=== PATIENT | female | born 1965 | race Caucasian/White ===

== ENCOUNTER 2019-05-09 15:58 | Inpatient (IN) | payer BC, OTHER ==
--- NOTE | 2019-05-09 16:20 | ER Document Report ---
ED Medical Screen (RME) - General Chief Complaint: Abdominal Pain Stated Complaint: ABDOMINAL PAIN, FEET SWELLING Time Seen by Provider: 05/09/19 16:04 Primary Care Provider: LINDA COMER FNP-C [Primary Care Provider] - Follow up as needed Mode of Arrival: Wheelchair Information source: Patient Notes: 54-year-old female presented to ED for complaint of severe abdominal pain x2 weeks. She states she just got into the hospital at [facility] for pneumonia. She states they told her she had liver disease from drinking 4-5 drinks a day. She states she also smokes 4 5 cigarettes a day. She states they sent her home on lactulose xifaxan 500 mg bid and potassium. She states that the legs have been swollen and painful the same length of time as her abdomen is been swollen and painful. Patient is alert oriented respirations regular and unlabored speaking in full sentences. She states she is having pain in her abdomen and she is cold. We have provided her with a blanket we will get her started on labs urine and have her seen by another provider. A warm blanket was provided for comfort. Abdomen is very distended. I have greeted and performed a rapid initial assessment of this patient. A comprehensive ED assessment and evaluation of the patient, analysis of test results and completion of medical decision making process will be conducted by an additional ED providers. TRAVEL OUTSIDE OF THE [place] IN LAST 30 DAYS: No - Related Data Allergies/Adverse Reactions: No Known Allergies Allergy (Verified 05/09/19 16:02) Physical Exam - Vital signs Vitals: Temp Pulse Resp BP Pulse Ox 97.7 F 107 H 20 129/91 H 100 05/09/19 16:03 05/09/19 16:03 05/09/19 16:03 05/09/19 16:03 05/09/19 16:03 Course - Vital Signs Vital signs: Temp Pulse Resp BP Pulse Ox 97.7 F 107 H 20 129/91 H 100 05/09/19 16:03 05/09/19 16:03 05/09/19 16:03 05/09/19 16:03 05/09/19 16:03 Doctor's Discharge - Discharge Referrals: LINDA COMER FNP-C [Primary Care Provider] - Follow up as needed
--- NOTE | 2019-05-09 16:39 | ER Document Report ---
ED GI/ - General Chief Complaint: Abdominal Pain Stated Complaint: ABDOMINAL PAIN, FEET SWELLING Time Seen by Provider: 05/09/19 16:04 Primary Care Provider: LINDA COMER FNP-C [Primary Care Provider] - Follow up as needed Mode of Arrival: Wheelchair Information source: Patient Notes: HPI: 54-year-old female with past medical history as recorded with a recent discharge from [facility] secondary to "pneumonia". She states she was discharged around 3 weeks ago. She states that the discharge she started to have some bilateral lower extremity swelling with some increased abdominal swelling. Patient states she has never been told that she has cirrhosis but has been told that she has a history of "liver abnormalities". However, she was prescribed lactulose upon discharge from [facility]. Patient presents today secondary to the leg swelling. On my interview she denies any abdominal pain. She does state increased abdominal swelling. She denies any fevers, vomiting, or diarrhea. She states she just "does not feel good". She is not able to specify exactly what that means. She specifically denies any headache, neck pain, chest pain, cough, or shortness of breath. ROS: See HPI All other review of systems reviewed and otherwise negative Reviewed vital signs and nursing note as charted by RN. PHYSICAL EXAM: CONSTITUTIONAL: Alert and oriented and responds appropriately to questions. Wel l-appearing; well-nourished HEAD: Normocephalic; atraumatic EYES: PERRL; Conjunctivae clear, sclerae icteric ENT: Normal nose; no rhinorrhea; moist mucous membranes; pharynx without lesions noted NECK: Supple without meningismus; non-tender; no cervical lymphadenopathy, no masses CARD: Regular rate and rhythm; no murmurs; symmetric distal pulses RESP: Normal chest excursion without splinting or tachypnea; breath sounds clear and equal bilaterally; no wheezes, no rhonchi, no rales ABD/GI: Normal bowel sounds; distended with a palpable fluid wave consistent with extensive ascites BACK: The back appears normal and is non-tender to palpation EXT: Normal ROM in all joints; non-tender to palpation; 2-3+ bilateral lower extremity edema SKIN: Spider angiomata to the chest NEURO: CN 2-12 intact; 5/5 bilateral upper and lower extremity strength with sensation intact to light touch; no obvious asterixis PSYCH: The patient's mood and manner are appropriate. Grooming and personal hygiene are appropriate. TRAVEL OUTSIDE OF THE [place] IN LAST 30 DAYS: No - Related Data Allergies/Adverse Reactions: No Known Allergies Allergy (Verified 05/09/19 16:02) Past Medical History - General Information source: Patient - Social History Smoking Status: Current Every Day Smoker Family History: Reviewed & Not Pertinent Patient has suicidal ideation: No Patient has homicidal ideation: No Renal/ Medical History: Denies: Hx Peritoneal Dialysis Physical Exam - Vital signs Vitals: Temp Pulse Resp BP Pulse Ox 97.7 F 107 H 20 129/91 H 100 05/09/19 16:03 05/09/19 16:03 05/09/19 16:03 05/09/19 16:03 05/09/19 16:03 Course - Re-evaluation Re-evalutation: 05/09/19 16:39 Given the above history and physical we will obtain basic labs, ultrasound of the abdomen, liver panel, coagulation profile, EKG, BNP, x-ray of the chest, and reassess. I do believe that the patient most likely has liver failure with ascites. I do believe spontaneous bacterial peritonitis to be unlikely given that the patient has no fever, abdominal pain on exam, and has had no vomiting. 05/09/19 17:36 Labs as recorded. I replaced the patient's potassium. Blood alcohol level as recorded. 05/09/19 17:38 X-ray of the chest shows normal heart size with no increased lung infiltrates or lung markings. No pleural effusions present. 05/09/19 17:47 EKG shows a heart of 103, sinus tachycardia, normal axis, no ST elevation or depression 05/09/19 17:53 Ultrasound as recorded. White count is recorded. Patient states she is on no diuretic medications. She has never been treated for her liver failure for her ascites. Electrolytes slightly irregular and I have replaced the potassium. Given the increased leg swelling, with the ascites as recorded, I do believe that the patient may need to be admitted for observation/admission as we start the patient on a diuretic medication including possibly spironolactone with electrolyte reassessment. - Vital Signs Vital signs: Temp Pulse Resp BP Pulse Ox 97.7 F 107 H 20 129/91 H 100 05/09/19 16:03 05/09/19 16:03 05/09/19 16:03 05/09/19 16:03 05/09/19 16:03 - Laboratory Result Diagrams: 05/09/19 16:30 05/09/19 16:30 Laboratory results interpreted by me: 05/09/19 05/09/19 05/09/19 16:30 16:30 16:30 RBC 2.91 L Hgb 10.1 L Hct 30.8 L MCV 106 H MCH 34.5 H RDW 15.6 H Plt Count 88 L PT 16.4 H APTT 40.7 H Sodium 136.6 L Potassium 3.2 L Carbon Dioxide 20 L BUN 6 L Creatinine 0.47 L Glucose 55 L Calcium 8.1 L Total Bilirubin 1.4 H Direct Bilirubin 0.7 H AST 183 H Alkaline Phosphatase 277 H Albumin 3.2 L Discharge - Discharge Clinical Impression: Cirrhosis Qualifiers: Hepatic cirrhosis type: unspecified hepatic cirrhosis Ascites presence: with ascites Qualified Code(s): K74.60 - Unspecified cirrhosis of liver; R18.8 - Other ascites Condition: Fair Disposition: ADMITTED OBSERVATION Admitting Provider: Ana (Hospitalist) Unit Admitted: Telemetry Referrals: LINDA COMER FNP-C [Primary Care Provider] - Follow up as needed
[2019-05-09 17:05] LABS: ABSOLUTE LYMPHOCYTES (AUTO) 0.6 10^3/uL (0.5-4.7); ABSOLUTE MONOCYTES (AUTO) 0.3 10^3/uL (0.1-1.4); ABSOLUTE NEUT (AUTO) 3.1 10^3/uL (1.7-8.2); EOSINOPHILS % (AUTO) 0.3 % (0-6); HEMATOCRIT 30.8 % (36.0-47.0); HEMOGLOBIN 10.1 g/dL (12.0-15.5); LYMPHOCYTES % (AUTO) 14.2 % (13-45); MEAN CORPUSCULAR HEMOGLOBIN 34.5 pg (27.0-33.4); MEAN CORPUSCULAR HGB CONC 32.6 g/dL (32.0-36.0); MEAN CORPUSCULAR VOLUME 106 fl (80-97); RED BLOOD COUNT 2.91 10^6/uL (3.72-5.28); RED CELL DISTRIBUTION WIDTH 15.6 % (11.5-14.0); SEGMENTED NEUTROPHILS % (AUTO) 77.5 % (42-78); TOTAL CELLS COUNTED % (AUTO) 100 %
[2019-05-09 17:13] LABS: INTERNATIONAL RATION (INR) 1.31; PROTHROMBIN TIME 16.4 SEC (11.4-15.4)
[2019-05-09 17:14] LABS: PARTIAL THROMBOPLASTIN TIME 40.7 SEC (23.5-35.8)
[2019-05-09 17:22] LABS: ALBUMIN 3.2 g/dL (3.5-5.0); ALCOHOL 190 mg/dL (NONE DETECTED); ALKALINE PHOSPHATASE 277 U/L (38-126); ANION GAP 16 (5-19); ASPARTATE AMINO TRANSFERASE 183 U/L (14-36); BILIRUBIN,DIRECT 0.7 mg/dL (0.0-0.4); BILIRUBIN,TOTAL 1.4 mg/dL (0.2-1.3); BLOOD UREA NITROGEN 6 mg/dL (7-20); CALCIUM 8.1 mg/dL (8.4-10.2); CARBON DIOXIDE 20 mmol/L (22-30); CHLORIDE 101 mmol/L (98-107); CREATINE KINASE 50 U/L (30-135); POTASSIUM 3.2 mmol/L (3.6-5.0); TOTAL PROTEIN 6.3 g/dL (6.3-8.2)
[2019-05-09 17:24] LABS: GLUCOSE 55 mg/dL (75-110)
[2019-05-09 17:26] LABS: PLATELET COUNT 88 10^3/uL (150-450)
[2019-05-09 17:32] LABS: CREATINE KINASE MB 0.83 ng/mL (<4.55)
[2019-05-09 17:33] LABS: TROPONIN I < 0.012 ng/mL
[2019-05-09] MEDS: POTASSIUM CHLORIDE 10 MEQ CAPSULE.ER PO ONE ×2 (17:41→17:50)
--- NOTE | 2019-05-09 17:41 | RADIOLOGY REPORT (SQ) ---
EXAM DESCRIPTION: U/S ABDOMEN COMPLETE W/O DOP COMPLETED DATE/TIME: 05/09/2019 5:11 pm REASON FOR STUDY: 3; possible ascites and liver failure COMPARISON: None. TECHNIQUE: Grayscale images acquired of the abdomen and recorded on PACS. Additional selected color Doppler and spectral images recorded. Note: Study does not meet criteria for complete doppler/duplex scan LIMITATIONS: Overlying bowel gas. FINDINGS: PANCREAS: Obscured by overlying bowel gas. LIVER: Measures 14.3 cm. Heterogeneous echotexture with a nodular contour. LIVER VASCULATURE: Normal directional flow of the main portal vein. GALLBLADDER: No stones. Normal wall thickness. No pericholecystic fluid. ULTRASOUND-DETECTED GUPTA'S SIGN: Negative. INTRAHEPATIC DUCTS AND COMMON DUCT: CBD and intrahepatic ducts normal caliber. INFERIOR VENA CAVA: Obscured. AORTA: No aneurysm at the visualized proximal segment. The mid and distal abdominal aorta was obscur ed by overlying bowel gas. RIGHT KIDNEY: Measures 10.5 cm in length. No hydronephrosis. LEFT KIDNEY: Measures 12.7 cm in length. No hydronephrosis. SPLEEN: Measures 12 cm. PERITONEAL AND PLEURAL SPACES: Moderate amount of ascites. IMPRESSION: 1. Heterogeneous liver with a nodular contour, suggestive of cirrhosis. 2. Moderate ascites. TECHNICAL DOCUMENTATION: JOB ID: [id number] 2010 [employer]- All Rights Reserved Reading location - IP/workstation name: [email or web address]
[2019-05-09] MEDS ORDERED: POTASSI CL 20 MEQ/50 ML RIDER 20 MEQ/50 ML RTUPB IV ONE (17:45)
[2019-05-09] MEDS ORDERED: NORMAL SALINE 1000 ML 1,000 ML IV PRN (17:51)
[2019-05-09] MEDS ORDERED: ACETAMINOPHEN 325 MG TABLET PO PRN (18:01)
[2019-05-09] MEDS ORDERED: ONDANSETRON HCL INJ/PF 4 MG/2 ML SDV IV PRN (18:01)
--- NOTE | 2019-05-09 18:01 | RADIOLOGY REPORT (SQ) ---
EXAM DESCRIPTION: CHEST 2 VIEWS COMPLETED DATE/TIME: 05/09/2019 5:12 pm REASON FOR STUDY: 3; liver failure with leg swelling COMPARISON: None. EXAM PARAMETERS: NUMBER OF VIEWS: two views TECHNIQUE: Digital Frontal and Lateral radiographic views of the chest acquired. RADIATION DOSE: NA LIMITATIONS: none FINDINGS: LUNGS AND PLEURA: Mild atelectasis at the left lung base. No pleural effusion or pneumoth orax. MEDIASTINUM AND HILAR STRUCTURES: No masses or contour abnormalities. HEART AND VASCULAR STRUCTURES: Heart normal size. No evidence for failure. BONES: No acute findings. HARDWARE: None in the chest. IMPRESSION: Mild atelectasis at the left lung base. TECHNICAL DOCUMENTATION: JOB ID: [id number] 2010 [employer]- All Rights Reserved Reading location - IP/workstation name: [email or web address]
[2019-05-09 18:03] LABS: APPEARANCE,URINE SLIGHTLY-CLOUDY; BILIRUBIN,URINE NEGATIVE (NEGATIVE); COLOR,URINE YELLOW; GLUCOSE, URINE NEGATIVE (NEGATIVE); KETONES,URINE 20 mg/dL (NEGATIVE); LEUKOCYTE ESTERASE,URINE LARGE (NEGATIVE); NITRITE,URINE NEGATIVE (NEGATIVE); PROTEIN,URINE NEGATIVE (NEGATIVE); URINE SPECIFIC GRAVITY 1.006; UROBILINOGEN,URINE NEGATIVE mg/dL (<2.0)
[2019-05-09] MEDS ORDERED: KETOROLAC TROMETHAMINE INJ/PF 30 MG/1 ML SDV IV ONE (18:03)
[2019-05-09 18:13] LABS: URINE AMPHETAMINES SCREEN NEGATIVE; URINE BARBITURATES SCREEN NEGATIVE; URINE BENZODIAZEPINES SCREEN NEGATIVE; URINE COCAINE SCREEN NEGATIVE; URINE MARIJUANA (THC) SCREEN NEGATIVE; URINE METHADONE SCREEN NEGATIVE; URINE PHENCYCLIDINE SCREEN NEGATIVE
--- NOTE | 2019-05-09 18:48 | PDOC H&P ---
History of Present Illness Admission Date/PCP: 05/09/19 18:02 ALEXANDER CAPELLAN-Antonia Patient complains of: Abdominal swelling and lower leg swelling for the last couple of weeks. History of Present Illness: DONTRELL SOUZA is a 54 year old female with history of cirrhosis of the liver and alcohol abuse since she was a kid chronic smoker came to the emergency room with complaints of abdominal swelling and bilateral leg swelling for the last couple of weeks. Patient was recently in [facility] [place] for pneumonia and discharged 3 weeks ago. Continues to drink alcohol. She had a heavy alcohol use last night before came to the emergency room today. Alcohol level in the emergency room is 190. He wants to be full code. He denies any nausea vomiting diarrhea denies any headaches dizzy spells. Denies any falls. She is noncompliant with her medications lactulose. Past Medical History Pulmonary Medical History: Reports: Pneumonia GI Medical History: Reports: Cirrhosis Past Surgical History Past Surgical History: Reports: Other - Tracheostomy Social History Smoking Status: Current Every Day Smoker Frequency of Alcohol Use: Heavy Hx Recreational Drug Use: No Drugs: None - Advance Directive Resuscitation Status: Full Code Family History Family History: Reviewed & Not Pertinent Parental Family History Reviewed: Yes - Not significant Children Family History Reviewed: Yes Sibling(s) Family History Reviewed.: Yes Medication/Allergy Allergies/Adverse Reactions: No Known Allergies Allergy (Verified 05/09/19 16:02) Review of Systems Constitutional: PRESENT: fatigue, weakness. ABSENT: fever(s), headache(s) Eyes: ABSENT: visual disturbances Ears: ABSENT: hearing changes Nose, Mouth, and Throat: ABSENT: sore throat Cardiovascular: ABSENT: palpitations Respiratory: ABSENT: dyspnea, hemoptysis Gastrointestinal: PRESENT: bloating Genitourinary: ABSENT: dysuria Neurological: ABSENT: abnormal gait, abnormal speech, confusion, dizziness, focal weakness, syncope Psychiatric: ABSENT: anxiety, depression, homidical ideation, suicidal ideation Physical Exam Vital Signs: Temp Pulse Resp BP Pulse Ox 97.7 F 107 H 20 129/91 H 100 05/09/19 16:03 05/09/19 16:03 05/09/19 16:03 05/09/19 16:03 05/09/19 16:03 Intake & Output 05/08/19 05/09/19 05/10/19 06:59 06:59 06:59 Weight 66 kg General appearance: PRESENT: mild distress, thin Head exam: PRESENT: atraumatic Eye exam: PRESENT: PERRLA Ear exam: PRESENT: normal external ear exam Mouth exam: PRESENT: neck supple Teeth exam: PRESENT: poor dentation Neck exam: ABSENT: carotid bruit, JVD, lymphadenopathy, thyromegaly Respiratory exam: PRESENT: decreased breath sounds Cardiovascular exam: PRESENT: RRR. ABSENT: diastolic murmur, rubs, systolic murmur GI/Abdominal exam: PRESENT: ascites, distended, guarding, normal bowel sounds, soft. ABSENT: mass, organolmegaly, rebound, tenderness Rectal exam: PRESENT: deferred Extremities exam: PRESENT: full ROM, +2 edema. ABSENT: calf tenderness, clubbing, pedal edema Neurological exam: PRESENT: alert, awake, oriented to person, oriented to place, oriented to time, oriented to situation, CN II-XII grossly intact. ABSENT: motor sensory deficit Psychiatric exam: PRESENT: agitated Results Laboratory Results: 05/09/19 16:30 05/09/19 16:30 05/09/19 05/09/19 05/09/19 16:30 16:30 17:25 WBC 4.0 RBC 2.91 L Hgb 10.1 L Hct 30.8 L MCV 106 H MCH 34.5 H MCHC 32.6 RDW 15.6 H Plt Count 88 L Seg Neutrophils % 77.5 Sodium 136.6 L Potassium 3.2 L Chloride 101 Carbon Dioxide 20 L Anion Gap 16 BUN 6 L Creatinine 0.47 L Est GFR ( Amer) > 60 Glucose 55 L Calcium 8.1 L Total Bilirubin 1.4 H AST 183 H Alkaline Phosphatase 277 H Ammonia < 8.7 L Total Protein 6.3 Albumin 3.2 L Lipase 71.5 Urine Color Urine Appearance Urine pH Ur Specific [place] Urine Protein Urine Glucose (UA) Urine Ketones Urine Blood Urine Nitrite Ur Leukocyte Esterase Urine WBC (Auto) Urine RBC (Auto) 05/09/19 17:45 WBC RBC Hgb Hct MCV MCH MCHC RDW Plt Count Seg Neutrophils % Sodium Potassium Chloride Carbon Dioxide Anion Gap BUN Creatinine Est GFR ( Amer) Glucose Calcium Total Bilirubin AST Alkaline Phosphatase Ammonia Total Protein Albumin Lipase Urine Color YELLOW Urine Appearance SLIGHTLY-CLOUDY Urine pH 7.0 Ur Specific [place] 1.006 Urine Protein NEGATIVE Urine Glucose (UA) NEGATIVE Urine Ketones 20 H Urine Blood SMALL H Urine Nitrite NEGATIVE Ur Leukocyte Esterase LARGE H Urine WBC (Auto) 86 Urine RBC (Auto) 1 05/09/19 05/09/19 16:30 16:30 Creatine Kinase 50 CK-MB (CK-2) 0.83 Troponin I < 0.012 Impressions: Abdomen Ultrasound 05/09/19 16:35 IMPRESSION: 1. Heterogeneous liver with a nodular contour, suggestive of cirrhosis. 2. Moderate ascites. Chest X-Ray 05/09/19 16:36 IMPRESSION: Mild atelectasis at the left lung base. Assessment and Plan - Diagnosis (1) Cirrhosis Qualifiers: Hepatic cirrhosis type: unspecified hepatic cirrhosis Ascites presence: with ascites Qualified Code(s): K74.60 - Unspecified cirrhosis of liver; R18.8 - Other ascites Is this a current diagnosis for this admission?: Yes Plan: 05/09/2019-patient came in with complaints of abdominal swelling and bilateral pedal edema ultrasound of the abdomen indicates no enlarged liver with ascites moderate amount on examination bilateral pedal edema present. Ammonia level is less than 8.7 and alcohol level is 190. Plan to put her in telemetry to start on low-fat and diet with fluid restriction of 1200 cc/day and also start her on Lasix 40 mg p.o. twice daily and spironolactone 100 mg p.o. twice daily. To start her on a lactulose 30 g every 8 hours. Latest profile was requested and requested to check for alpha-fetoprotein. (2) Alcohol abuse Is this a current diagnosis for this admission?: Yes Plan: 05/09/2019-patient has history of alcohol abuse she is drinking for the last 30 years on daily basis. Counseling was provided to quit drinking. To start her on Ativan 1 mg IV every 4 PRN for agitation and to watch for alcohol withdrawal symptoms. Other than a banana bag daily. (3) Hypokalemia Is this a current diagnosis for this admission?: Yes Plan: 05/09/2019-serum potassium is 3.2 which is going to be supplemented on daily basis. (4) Tobacco abuse Is this a current diagnosis for this admission?: No Plan: 05/09/2019-patient has history of smoking for more than 30 years. Current day smoker. Smokes close to 1 pack/day. Smoking counseling was provided for more than 20 minutes to offer nicotine patches. - Time Time Spent with patient: 25-34 minutes Smoking Cessation Education: over 10 minutes Medications reviewed and adjusted accordingly: Yes Anticipated discharge: Home
--- NOTE | 2019-05-09 19:09 | EKG REPORT ---
SEVERITY:- OTHERWISE NORMAL ECG - SINUS TACHYCARDIA : Confirmed by: Archana Irwin MD 09-May-2019 19:09:09
[2019-05-09 19:30] LABS: CREATINE KINASE MB 0.83 ng/mL (<4.55)
[2019-05-09 19:31] LABS: TROPONIN I < 0.012 ng/mL
[2019-05-09] MEDS: NORMAL SALINE 1000 ML 1,000 ML with POTASSIUM CHLORIDE 20 MEQ, MAGNESIUM SULFATE 8 MEQ,... IV SCH ×5 (20:40)
[2019-05-09] MEDS: MAGNESIUM SULFATE/D5W 1 GM/100 ML RTUPB IV SCH ×2 (20:52→22:05)
[2019-05-09] MEDS: LACTULOSE SYRUP 20 GM/30 ML UDCUP PO SCH (22:05)
[2019-05-09] MEDS: LORAZEPAM INJ 2 MG/1 ML VIAL IV PRN (22:06)
[2019-05-10 01:41] LABS: CREATINE KINASE MB 0.68 ng/mL (<4.55)
[2019-05-10] MEDS: LACTULOSE SYRUP 20 GM/30 ML UDCUP PO SCH ×6 (01:45→22:48)
[2019-05-10 01:48] LABS: TROPONIN I < 0.012 ng/mL
[2019-05-10] MEDS: LORAZEPAM INJ 2 MG/1 ML VIAL IV PRN ×3 (01:49→22:15)
[2019-05-10] MEDS: PANTOPRAZOLE SODIUM 40 MG TABLET.DR PO SCH ×2 (05:35→17:49)
[2019-05-10 07:34] LABS: ALBUMIN 2.8 g/dL (3.5-5.0); ALKALINE PHOSPHATASE 287 U/L (38-126); ANION GAP 7 (5-19); ASPARTATE AMINO TRANSFERASE 169 U/L (14-36); BILIRUBIN,DIRECT 0.4 mg/dL (0.0-0.4); BILIRUBIN,TOTAL 1.1 mg/dL (0.2-1.3); BLOOD UREA NITROGEN 8 mg/dL (7-20); CALCIUM 8.1 mg/dL (8.4-10.2); CARBON DIOXIDE 27 mmol/L (22-30); CHLORIDE 101 mmol/L (98-107); CHOLESTEROL 138.81 mg/dL (0-200); CREATINE KINASE 43 U/L (30-135); GLUCOSE 101 mg/dL (75-110); POTASSIUM 3.3 mmol/L (3.6-5.0); TOTAL PROTEIN 5.8 g/dL (6.3-8.2); TRIGLYCERIDES 89 mg/dL (<150)
[2019-05-10 07:40] LABS: ABSOLUTE EOSINOPHILS # (AUTO) 0.1 10^3/uL (0.0-0.6); ABSOLUTE LYMPHOCYTES (AUTO) 1.3 10^3/uL (0.5-4.7); ABSOLUTE MONOCYTES (AUTO) 0.4 10^3/uL (0.1-1.4); ABSOLUTE NEUT (AUTO) 2.7 10^3/uL (1.7-8.2); BASOPHILS % (AUTO) 0.3 % (0-2); EOSINOPHILS % (AUTO) 1.2 % (0-6); HEMATOCRIT 26.7 % (36.0-47.0); HEMOGLOBIN 8.9 g/dL (12.0-15.5); LYMPHOCYTES % (AUTO) 28.5 % (13-45); MEAN CORPUSCULAR HEMOGLOBIN 34.4 pg (27.0-33.4); MEAN CORPUSCULAR HGB CONC 33.3 g/dL (32.0-36.0); MEAN CORPUSCULAR VOLUME 103 fl (80-97); MONOCYTES % (AUTO) 9.2 % (3-13); RED BLOOD COUNT 2.59 10^6/uL (3.72-5.28); RED CELL DISTRIBUTION WIDTH 15.5 % (11.5-14.0); SEGMENTED NEUTROPHILS % (AUTO) 60.8 % (42-78); TOTAL CELLS COUNTED % (AUTO) 100 %; WHITE BLOOD COUNT 4.5 10^3/uL (4.0-10.5)
[2019-05-10 07:44] LABS: CREATINE KINASE MB 0.61 ng/mL (<4.55); NT PRO BNP 328 pg/mL (5-900)
[2019-05-10 07:46] LABS: DIRECT LDL 70 mg/dL (<100)
[2019-05-10 07:48] LABS: TROPONIN I < 0.012 ng/mL
[2019-05-10 08:02] LABS: PLATELET COUNT 78 10^3/uL (150-450)
--- NOTE | 2019-05-10 09:33 | EKG REPORT ---
SEVERITY:- ABNORMAL ECG - SINUS TACHYCARDIA PROBABLE ANTEROSEPTAL INFARCT, OLD : Confirmed by: Archana Irwin MD 10-May-2019 09:31:43
[2019-05-10] MEDS ORDERED: FUROSEMIDE 40 MG TABLET PO SCH (10:00)
[2019-05-10] MEDS ORDERED: POTASSIUM CHLORIDE 20 MEQ PACKET PO SCH (10:00)
[2019-05-10] MEDS: ENOXAPARIN SODIUM INJ 40 MG/0.4 ML DISP.SYRIN SUBCUT SCH (10:50)
--- NOTE | 2019-05-10 10:50 | PDOC PROGRESS REPORT ---
Subjective Progress Note for:: 05/10/19 Subjective:: 54 year old female with history of cirrhosis of the liver and alcohol abuse since she was a kid chronic smoker came to the emergency room with complaints of abdominal swelling and bilateral leg swelling for the last couple of weeks. Patient was recently in [facility] [place] for pneumonia and discharged 3 weeks ago. Continues to drink alcohol. She had a heavy alcohol use last night before came to the emergency room today. Alcohol level in the emergency room is 190. He wants to be full code. He denies any nausea vomiting diarrhea denies any headaches dizzy spells. Denies any falls. She is noncompliant with her medications lactulose. 05/10/[id number]-irtu-old female with heavy alcohol use history and cirrhosis of the liver admitted for abdominal distention and bilateral lower extremity swelling. Started on Lasix 40 mg p.o. daily and spironolactone 100 mg p.o. daily. Still edematous. To start her on fluid restriction 1200 cc/h and to increase the Lasix to 40 mg p.o. twice daily and continue spironolactone 100 mg p.o. daily. We are going to place a consult for Dr. Christopher on-call for tomorrow. hepatitis profile and alpha-fetoprotein tumor markers are pending. Reason For Visit: CIRRHOSIS Physical Exam Vital Signs: Temp Pulse Resp BP Pulse Ox 98.4 F 110 H 22 H 130/76 H 93 05/10/19 08:10 05/10/19 08:10 05/10/19 08:10 05/10/19 08:10 05/10/19 09:54 Intake & Output 05/09/19 05/10/19 05/11/19 06:59 06:59 06:59 Intake Total 1770 Balance 1770 Weight 69.8 kg General appearance: PRESENT: no acute distress Head exam: PRESENT: atraumatic Eye exam: PRESENT: PERRLA Mouth exam: PRESENT: moist, tongue midline Teeth exam: PRESENT: poor dentation Neck exam: ABSENT: carotid bruit, JVD, lymphadenopathy, thyromegaly Respiratory exam: PRESENT: decreased breath sounds Cardiovascular exam: PRESENT: RRR. ABSENT: diastolic murmur, rubs, systolic murmur GI/Abdominal exam: PRESENT: ascites, distended Rectal exam: PRESENT: deferred Extremities exam: PRESENT: +2 edema Neurological exam: PRESENT: alert, awake, oriented to person, oriented to place, oriented to time, oriented to situation, CN II-XII grossly intact. ABSENT: motor sensory deficit Psychiatric exam: PRESENT: appropriate affect, normal mood. ABSENT: homicidal ideation, suicidal ideation Results Laboratory Results: 05/10/19 07:06 05/10/19 07:06 05/09/19 05/09/19 05/09/19 16:30 16:30 17:25 WBC 4.0 RBC 2.91 L Hgb 10.1 L Hct 30.8 L MCV 106 H MCH 34.5 H MCHC 32.6 RDW 15.6 H Plt Count 88 L Seg Neutrophils % 77.5 Sodium 136.6 L Potassium 3.2 L Chloride 101 Carbon Dioxide 20 L Anion Gap 16 BUN 6 L Creatinine 0.47 L Est GFR ( Amer) > 60 Glucose 55 L Calcium 8.1 L Magnesium Total Bilirubin 1.4 H AST 183 H Alkaline Phosphatase 277 H Ammonia < 8.7 L Total Protein 6.3 Albumin 3.2 L Triglycerides Cholesterol LDL Cholesterol Direct VLDL Cholesterol HDL Cholesterol Lipase 71.5 TSH Urine Color Urine Appearance Urine pH Ur Specific Manito Urine Protein Urine Glucose (UA) Urine Ketones Urine Blood Urine Nitrite Ur Leukocyte Esterase Urine WBC (Auto) Urine RBC (Auto) 05/09/19 05/10/19 05/10/19 17:45 07:06 07:06 WBC 4.5 RBC 2.59 L Hgb 8.9 L Hct 26.7 L MCV 103 H MCH 34.4 H MCHC 33.3 RDW 15.5 H Plt Count 78 L Seg Neutrophils % 60.8 Sodium 135.2 L Potassium 3.3 L Chloride 101 Carbon Dioxide 27 Anion Gap 7 BUN 8 Creatinine 0.49 L Est GFR ( Amer) > 60 Glucose 101 Calcium 8.1 L Magnesium 1.9 Total Bilirubin 1.1 AST 169 H Alkaline Phosphatase 287 H Ammonia Total Protein 5.8 L Albumin 2.8 L Triglycerides 89 Cholesterol 138.81 LDL Cholesterol Direct 70 VLDL Cholesterol 18.0 HDL Cholesterol 57 Lipase 100.0 TSH Urine Color YELLOW Urine Appearance SLIGHTLY-CLOUDY Urine pH 7.0 Ur Specific Manito 1.006 Urine Protein NEGATIVE Urine Glucose (UA) NEGATIVE Urine Ketones 20 H Urine Blood SMALL H Urine Nitrite NEGATIVE Ur Leukocyte Esterase LARGE H Urine WBC (Auto) 86 Urine RBC (Auto) 1 05/10/19 05/10/19 07:06 07:06 WBC RBC Hgb Hct MCV MCH MCHC RDW Plt Count Seg Neutrophils % Sodium Potassium Chloride Carbon Dioxide Anion Gap BUN Creatinine Est GFR ( Amer) Glucose Calcium Magnesium Total Bilirubin AST Alkaline Phosphatase Ammonia 14.2 Total Protein Albumin Triglycerides Cholesterol LDL Cholesterol Direct VLDL Cholesterol HDL Cholesterol Lipase TSH 2.89 Urine Color Urine Appearance Urine pH Ur Specific Manito Urine Protein Urine Glucose (UA) Urine Ketones Urine Blood Urine Nitrite Ur Leukocyte Esterase Urine WBC (Auto) Urine RBC (Auto) 05/09/19 05/09/19 05/09/19 16:30 16:30 18:50 Creatine Kinase 50 49 CK-MB (CK-2) 0.83 Troponin I < 0.012 NT-Pro-B Natriuret Pep 05/09/19 05/10/19 05/10/19 18:50 00:49 00:49 Creatine Kinase 44 CK-MB (CK-2) 0.83 0.68 Troponin I < 0.012 < 0.012 NT-Pro-B Natriuret Pep 05/10/19 05/10/19 07:06 07:06 Creatine Kinase 43 CK-MB (CK-2) 0.61 Troponin I < 0.012 NT-Pro-B Natriuret Pep 328 Impressions: Abdomen Ultrasound 05/09/19 16:35 IMPRESSION: 1. Heterogeneous liver with a nodular contour, suggestive of cirrhosis. 2. Moderate ascites. Chest X-Ray 05/09/19 16:36 IMPRESSION: Mild atelectasis at the left lung base. Assessment and Plan - Diagnosis (1) Cirrhosis Qualifiers: Hepatic cirrhosis type: unspecified hepatic cirrhosis Ascites presence: with ascites Qualified Code(s): K74.60 - Unspecified cirrhosis of liver; R18.8 - Other ascites Is this a current diagnosis for this admission?: Yes Plan: 05/09/2019-patient came in with complaints of abdominal swelling and bilateral pedal edema ultrasound of the abdomen indicates no enlarged liver with ascites moderate amount on examination bilateral pedal edema present. Ammonia level is less than 8.7 and alcohol level is 190. Plan to put her in telemetry to start on low-fat and diet with fluid restriction of 1200 cc/day and also start her on Lasix 40 mg p.o. twice daily and spironolactone 100 mg p.o. twice daily. To start her on a lactulose 30 g every 8 hours. Latest profile was requested and requested to check for alpha-fetoprotein. 05/10/2019-patient has a cirrhosis of the liver CAT scan shows nodularity. On Lasix 40 mg p.o. twice daily and spironolactone [address] daily to [address] GI consult for tomorrow. Placed on fluid restriction 1200 cc/h. On examination moderate ascites present in the abdomen and 2+ pedal edema present. (2) Alcohol abuse Is this a current diagnosis for this admission?: Yes Plan: 05/09/2019-patient has history of alcohol abuse she is drinking for the last 30 years on daily basis. Counseling was provided to quit drinking. To start her on Ativan 1 mg IV every 4 PRN for agitation and to watch for alcohol withdrawal symptoms. Other than a banana bag daily. 05/10/2019-patient is presently on IV Ativan every 4 PRN for possible alcohol withdrawal symptoms and to watch for DTs. (3) Hypokalemia Is this a current diagnosis for this admission?: Yes Plan: 05/09/2019-serum potassium is 3.2 which is going to be supplemented on daily basis. 05/10/2019-serum potassium today is 3.3 to give p.o. potassium supplementation. (4) Tobacco abuse Is this a current diagnosis for this admission?: No - Time Time Spent with patient: 25-34 minutes Smoking Cessation Education: over 10 minutes Medications reviewed and adjusted accordingly: Yes Anticipated discharge: Home
[2019-05-10] MEDS: SPIRONOLACTONE 25 MG TABLET PO SCH (10:58)
[2019-05-10] MEDS: FUROSEMIDE 40 MG TABLET PO SCH ×2 (10:59→17:48)
[2019-05-10] MEDS: RIFAXIMIN 550 MG TABLET PO SCH ×2 (11:00→17:49)
[2019-05-10] MEDS: NORMAL SALINE 1000 ML 1,000 ML with POTASSIUM CHLORIDE 20 MEQ, MAGNESIUM SULFATE 8 MEQ,... IV SCH ×5 (17:48)
[2019-05-11] MEDS: LORAZEPAM INJ 2 MG/1 ML VIAL IV PRN ×3 (02:40→22:24)
[2019-05-11] MEDS: LACTULOSE SYRUP 20 GM/30 ML UDCUP PO SCH ×6 (05:53→21:17)
[2019-05-11] MEDS: PANTOPRAZOLE SODIUM 40 MG TABLET.DR PO SCH ×2 (07:42→16:59)
[2019-05-11] MEDS: RIFAXIMIN 550 MG TABLET PO SCH ×2 (09:14→17:00)
[2019-05-11] MEDS: ENOXAPARIN SODIUM INJ 40 MG/0.4 ML DISP.SYRIN SUBCUT SCH (09:14)
[2019-05-11] MEDS: FUROSEMIDE 40 MG TABLET PO SCH ×2 (09:14→16:59)
[2019-05-11] MEDS: SPIRONOLACTONE 25 MG TABLET PO SCH (09:14)
--- NOTE | 2019-05-11 09:16 | RADIOLOGY REPORT (SQ) ---
EXAM DESCRIPTION: CT ABD/PELVIS NO ORAL OR IV COMPLETED DATE/TIME: 05/11/2019 9:03 am REASON FOR STUDY: ascites COMPARISON: 05/09/2019 TECHNIQUE: CT scan of the abdomen and pelvis performed without intravenous or oral contrast. Images reviewed with lung, soft tissue, and bone windows. Reconstructed coronal and sagittal MPR images revi ewed. All images stored on PACS. All CT scanners at this facility use dose modulation, iterative reconstruction, and/or weight based d osing when appropriate to reduce radiation dose to as low as reasonably achievable (ALARA). [facility]: Dose Right [facility]: CareDose [facility]: Dose Right [facility]: Teradose 4D [facility]: Smart GrabInbox RADIATION DOSE: CT Rad equipment meets quality standard of care and radiation dose reduction techniq ues were employed. CTDIvol: 5.4 mGy. DLP: 313 mGy-cm.mGy. LIMITATIONS: None. FINDINGS: LOWER CHEST: There are bilateral pleural effusions and basilar atelectasis. NON-CONTRASTED LIVER, SPLEEN, ADRENALS: Diffuse fatty infiltration of the liver. PANCREAS: No masses. No peripancreatic inflammatory changes. GALLBLADDER: No identified stones by CT criteria. No inflammatory changes to suggest cholecystitis. RIGHT KIDNEY AND URETER: No suspicious masses. Assessment limited by lack of IV contrast. No signif icant calcifications. No hydronephrosis or hydroureter. LEFT KIDNEY AND URETER: No suspicious masses. Assessment limited by lack of IV contrast. No signifi cant calcifications. No hydronephrosis or hydroureter. AORTA AND RETROPERITONEUM: No aneurysm. No retroperitoneal masses or adenopathy. BOWEL AND PERITONEAL CAVITY: Large amount of ascites. No inflammatory changes. APPENDIX: Normal. PELVIS, BLADDER, AND ABDOMINAL WALL:Free fluid in the pelvis. No masses are adenopathy. BONES: No significant findings. OTHER: No other significant finding. IMPRESSION: Moderate to large volume ascites. Heterogeneous attenuation throughout the liver consistent with fatty infiltration. COMMENT: Quality ID # [id number]: Final reports with documentation of one or more dose reduction techniques (e.g., Automated exposure control, adjustment of the mA and/or kV according to patient size, use of iterative reconstruction technique) TECHNICAL DOCUMENTATION: JOB ID: [id number] [employer]- All Rights Reserved Reading location - IP/workstation name: [email or web address]
[2019-05-11 09:35] LABS: ABSOLUTE EOSINOPHILS # (AUTO) 0.1 10^3/uL (0.0-0.6); ABSOLUTE LYMPHOCYTES (AUTO) 0.9 10^3/uL (0.5-4.7); ABSOLUTE MONOCYTES (AUTO) 0.3 10^3/uL (0.1-1.4); ABSOLUTE NEUT (AUTO) 1.8 10^3/uL (1.7-8.2); BASOPHILS % (AUTO) 1.1 % (0-2); EOSINOPHILS % (AUTO) 3.1 % (0-6); HEMATOCRIT 27.7 % (36.0-47.0); HEMOGLOBIN 9.2 g/dL (12.0-15.5); LYMPHOCYTES % (AUTO) 29.7 % (13-45); MEAN CORPUSCULAR HEMOGLOBIN 34.1 pg (27.0-33.4); MEAN CORPUSCULAR HGB CONC 33.2 g/dL (32.0-36.0); MEAN CORPUSCULAR VOLUME 103 fl (80-97); MONOCYTES % (AUTO) 8.8 % (3-13); RED CELL DISTRIBUTION WIDTH 14.9 % (11.5-14.0); SEGMENTED NEUTROPHILS % (AUTO) 57.3 % (42-78); TOTAL CELLS COUNTED % (AUTO) 100 %; WHITE BLOOD COUNT 3.1 10^3/uL (4.0-10.5)
[2019-05-11 09:58] LABS: ALBUMIN 2.9 g/dL (3.5-5.0); ALKALINE PHOSPHATASE 256 U/L (38-126); ANION GAP 7 (5-19); ASPARTATE AMINO TRANSFERASE 121 U/L (14-36); BILIRUBIN,DIRECT 0.5 mg/dL (0.0-0.4); BILIRUBIN,TOTAL 1.6 mg/dL (0.2-1.3); BLOOD UREA NITROGEN 4 mg/dL (7-20); CALCIUM 8.1 mg/dL (8.4-10.2); CARBON DIOXIDE 31 mmol/L (22-30); CHLORIDE 97 mmol/L (98-107); GLUCOSE 119 mg/dL (75-110); TOTAL PROTEIN 6.2 g/dL (6.3-8.2)
[2019-05-11 09:59] LABS: PLATELET COUNT 70 10^3/uL (150-450)
[2019-05-11] MEDS ORDERED: POTASSIUM CHLORIDE 20 MEQ PACKET PO SCH (10:00)
[2019-05-11] MEDS ORDERED: ONDANSETRON HCL INJ/PF 4 MG/2 ML SDV IV PRN (10:00)
[2019-05-11 10:07] LABS: POTASSIUM 2.8 mmol/L (3.6-5.0)
--- NOTE | 2019-05-11 13:42 | PDOC PROGRESS REPORT ---
Subjective Progress Note for:: 05/11/19 Subjective:: 54 year old female with history of cirrhosis of the liver and alcohol abuse since she was a kid chronic smoker came to the emergency room with complaints of abdominal swelling and bilateral leg swelling for the last couple of weeks. Patient was recently in [facility] for pneumonia and discharged 3 weeks ago. Continues to drink alcohol. She had a heavy alcohol use last night before came to the emergency room today. Alcohol level in the emergency room is 190. He wants to be full code. He denies any nausea vomiting diarrhea denies any headaches dizzy spells. Denies any falls. She is noncompliant with her medications lactulose. 05/10/[id number]-yooy-old female with heavy alcohol use history and cirrhosis of the liver admitted for abdominal distention and bilateral lower extremity swelling. Started on Lasix 40 mg p.o. daily and spironolactone 100 mg p.o. daily. Still edematous. To start her on fluid restriction 1200 cc/h and to increase the Lasix to 40 mg p.o. twice daily and continue spironolactone 100 mg p.o. daily. We are going to place a consult for Dr. Christopher on-call for tomorrow. hepatitis profile and alpha-fetoprotein tumor markers are pending. 05/11/[id number]-saej-old female with history of heavy alcohol use and smoker admitted with liver cirrhosis. CT scan of the abdominal and pelvis shows large amount of ascites. Scheduled for abdominal paracentesis tomorrow. Patient is comfortable in the bed communicating well. Reason For Visit: CIRRHOSIS Physical Exam Vital Signs: Temp Pulse Resp BP Pulse Ox 98.3 F 100 16 106/79 96 05/11/19 10:50 05/11/19 10:50 05/11/19 10:50 05/11/19 10:50 05/11/19 10:50 Intake & Output 05/10/19 05/11/19 05/12/19 06:59 06:59 06:59 Intake Total 2338 772 9583 Output Total 200 Balance 4680 367 8050 Weight 69.8 kg 69.9 kg General appearance: PRESENT: no acute distress, cooperative, disheveled, thin Head exam: PRESENT: atraumatic Eye exam: PRESENT: PERRLA Teeth exam: PRESENT: poor dentation Neck exam: ABSENT: carotid bruit, JVD, lymphadenopathy, thyromegaly Respiratory exam: PRESENT: decreased breath sounds Cardiovascular exam: PRESENT: RRR. ABSENT: diastolic murmur, rubs, systolic murmur GI/Abdominal exam: PRESENT: ascites, normal bowel sounds, soft. ABSENT: distended, guarding, mass, organolmegaly, rebound, tenderness Rectal exam: PRESENT: deferred Extremities exam: PRESENT: full ROM. ABSENT: calf tenderness, clubbing, pedal edema Neurological exam: PRESENT: alert, awake, oriented to person, oriented to place, oriented to time, oriented to situation, CN II-XII grossly intact. ABSENT: motor sensory deficit Psychiatric exam: PRESENT: appropriate affect, normal mood. ABSENT: homicidal ideation, suicidal ideation Results Laboratory Results: 05/11/19 09:13 05/11/19 09:13 05/11/19 05/11/19 09:13 09:13 WBC 3.1 L RBC 2.70 L Hgb 9.2 L Hct 27.7 L MCV 103 H MCH 34.1 H MCHC 33.2 RDW 14.9 H Plt Count 70 L Seg Neutrophils % 57.3 Sodium 134.7 L Potassium 2.8 L* Chloride 97 L Carbon Dioxide 31 H Anion Gap 7 BUN 4 L Creatinine 0.41 L Est GFR ( Amer) > 60 Glucose 119 H Calcium 8.1 L Magnesium 1.6 Total Bilirubin 1.6 H AST 121 H Alkaline Phosphatase 256 H Total Protein 6.2 L Albumin 2.9 L 05/09/19 05/09/19 05/09/19 16:30 16:30 18:50 Creatine Kinase 50 49 CK-MB (CK-2) 0.83 Troponin I < 0.012 NT-Pro-B Natriuret Pep 05/09/19 05/10/19 05/10/19 18:50 00:49 00:49 Creatine Kinase 44 CK-MB (CK-2) 0.83 0.68 Troponin I < 0.012 < 0.012 NT-Pro-B Natriuret Pep 05/10/19 05/10/19 07:06 07:06 Creatine Kinase 43 CK-MB (CK-2) 0.61 Troponin I < 0.012 NT-Pro-B Natriuret Pep 328 Impressions: Abdomen Ultrasound 05/09/19 16:35 IMPRESSION: 1. Heterogeneous liver with a nodular contour, suggestive of cirrhosis. 2. Moderate ascites. Chest X-Ray 05/09/19 16:36 IMPRESSION: Mild atelectasis at the left lung base. Abdomen/Pelvis CT 05/11/19 00:00 IMPRESSION: Moderate to large volume ascites. Heterogeneous attenuation throughout the liver consistent with fatty infiltration. Assessment and Plan - Diagnosis (1) Cirrhosis Qualifiers: Hepatic cirrhosis type: unspecified hepatic cirrhosis Ascites presence: with ascites Qualified Code(s): K74.60 - Unspecified cirrhosis of liver; R18.8 - Other ascites Is this a current diagnosis for this admission?: Yes Plan: 05/09/2019-patient came in with complaints of abdominal swelling and bilateral pedal edema ultrasound of the abdomen indicates no enlarged liver with ascites moderate amount on examination bilateral pedal edema present. Ammonia level is less than 8.7 and alcohol level is 190. Plan to put her in telemetry to start on low-fat and diet with fluid restriction of 1200 cc/day and also start her on Lasix 40 mg p.o. twice daily and spironolactone 100 mg p.o. twice daily. To start her on a lactulose 30 g every 8 hours. Latest profile was requested and requested to check for alpha-fetoprotein. 05/10/2019-patient has a cirrhosis of the liver CAT scan shows nodularity. On Lasix 40 mg p.o. twice daily and spironolactone [address] GI consult for tomorrow. Placed on fluid restriction 1200 cc/h. On examination moderate ascites present in the abdomen and 2+ pedal edema present. 05/11/2019-patient has a cirrhosis of the liver with nodularity. GI consult was requested. Hepatitis profile is pending. Presently on Lasix 40 mg p.o. twice daily and spironolactone 100 mg p.o. daily. Potassium 3.3. (2) Alcohol abuse Is this a current diagnosis for this admission?: Yes Plan: 05/09/2019-patient has history of alcohol abuse she is drinking for the last 30 y ears on daily basis. Counseling was provided to quit drinking. To start her on Ativan 1 mg IV every 4 PRN for agitation and to watch for alcohol withdrawal symptoms. Other than a banana bag daily. 05/10/2019-patient is presently on IV Ativan every 4 PRN for possible alcohol withdrawal symptoms and to watch for DTs. 05/11/2019-patient has a history of heavy alcohol use. Presently on IV Ativan 4 mg every 4 PRN for prevention of her DTs. (3) Hypokalemia Is this a current diagnosis for this admission?: Yes Plan: 05/09/2019-serum potassium is 3.2 which is going to be supplemented on daily basis. 05/10/2019-serum potassium today is 3.3 to give p.o. potassium supplementation. 05/11/2019-serum potassium today is 2.8 which is going to be supplemented. (4) Tobacco abuse Is this a current diagnosis for this admission?: No - Time Time Spent with patient: 25-34 minutes Medications reviewed and adjusted accordingly: Yes Anticipated discharge: Home
[2019-05-11] MEDS: POTASSIUM CHLORIDE 20 MEQ PACKET PO SCH ×2 (14:30→17:00)
[2019-05-11 14:36] LABS: HEPATITS B SURFACE ANTIGEN Negative (Negative)
[2019-05-11 16:46] LABS: HEPATITIS C VIRUS ANTIBODY <0.1 s/co ratio (0.0-0.9)
[2019-05-11] MEDS: NORMAL SALINE 1000 ML 1,000 ML with POTASSIUM CHLORIDE 20 MEQ, MAGNESIUM SULFATE 8 MEQ,... IV SCH ×5 (16:59)
[2019-05-12] MEDS: LACTULOSE SYRUP 20 GM/30 ML UDCUP PO SCH ×4 (03:42→11:57)
[2019-05-12] MEDS: LORAZEPAM INJ 2 MG/1 ML VIAL IV PRN ×4 (05:24→23:26)
[2019-05-12] MEDS: PANTOPRAZOLE SODIUM 40 MG TABLET.DR PO SCH ×2 (05:24→18:16)
[2019-05-12 06:28] LABS: INTERNATIONAL RATION (INR) 1.34; PROTHROMBIN TIME 16.7 SEC (11.4-15.4)
[2019-05-12 06:29] LABS: PARTIAL THROMBOPLASTIN TIME 37.3 SEC (23.5-35.8)
[2019-05-12 10:13] LABS: BLOOD UREA NITROGEN 3 mg/dL (7-20); CALCIUM 7.9 mg/dL (8.4-10.2); CHLORIDE 99 mmol/L (98-107); GLUCOSE 97 mg/dL (75-110); POTASSIUM 3.4 mmol/L (3.6-5.0)
[2019-05-12 10:18] LABS: ANION GAP 5 (5-19); CARBON DIOXIDE 30 mmol/L (22-30)
[2019-05-12] MEDS: FUROSEMIDE 40 MG TABLET PO SCH ×2 (10:32→18:16)
[2019-05-12] MEDS: POTASSIUM CHLORIDE 20 MEQ PACKET PO SCH ×3 (10:32→18:17)
[2019-05-12] MEDS: SPIRONOLACTONE 25 MG TABLET PO SCH (10:32)
[2019-05-12] MEDS: RIFAXIMIN 550 MG TABLET PO SCH ×2 (10:57→18:44)
--- NOTE | 2019-05-12 10:57 | RADIOLOGY REPORT (SQ) ---
EXAM DESCRIPTION: U/S ABD PARACENTESIS COMPLETED DATE/TIME: 05/12/2019 10:33 am REASON FOR STUDY: ascites COMPARISON: 05/09/2019 LIMITATIONS: None. PROCEDURE: Procedure, risks, benefit, and alternative explained to patient who then gave written con sent. The right upper abdominal wall marked using ultrasound guidance. A time-out was called for co rrect marking verification. Abdomen prepped and draped using sterile technique. Local anesthesia ach ieved using 10 ml of 1% lidocaine injection. A 6fr Bacj-P-Uyhyhlet set was introduced into the perit delong cavity. Fluid was drained. The catheter was removed and entry site was covered with sterile b andage. No immediate complications noted. Images acquired during the procedure were stored on PACS. FINDINGS: ENTRY SITE: Right upper quadrant FLUID VOLUME: 4 L FLUID ANALYSIS: Straw-colored OTHER: Therapeutic only. IMPRESSION: SUCCESSFUL ULTRASOUND GUIDED PARACENTESIS. COMMENT: Patient medication list reviewed:Yes- Quality ID# [id number]:Eligible professional attests to docu menting in the medical record they obtained, updated, or reviewed the patient's current medications. TECHNICAL DOCUMENTATION: JOB ID: [id number] [employer]- All Rights Reserved Reading location - IP/workstation name: [email or web address]
--- NOTE | 2019-05-12 14:18 | PDOC CONSULTATION ---
Consultation Consult Date: 05/12/19 Provider Consulted: SANDER KHAN Consult reason:: Cirrhosis with ascites History of Present Illness Admission Date/PCP: 05/09/19 18:02 MARTINEZ CAPELLAN History of Present Illness: DONTRELL SOUZA is a 54 year old female Asked to see this patient has chronic liver disease due to ETOH admitted with ascites recent paracentesis and had 4L removed, feels better patient has lab work pending has been on maximal diuretics patient had CT scan done, no IV contrast, so no PVT appreciated patient has alpha feto protein and hepatitis panel pending patient has mildly elevated LFT and normal renal function Past Medical History Pulmonary Medical History: Reports: Pneumonia GI Medical History: Reports: Cirrhosis Psychiatric Medical History: Denies: Depression Past Surgical History Past Surgical History: Reports: Other - Tracheostomy Social History Smoking Status: Current Every Day Smoker Cigarettes Packs Per Day: 0.5 Frequency of Alcohol Use: Heavy Hx Recreational Drug Use: No Drugs: None Hx Prescription Drug Abuse: No - Advance Directive Resuscitation Status: Full Code Family History Family History: Reviewed & Not Pertinent Parental Family History Reviewed: Yes Children Family History Reviewed: Unknown Sibling(s) Family History Reviewed.: Unknown Medication/Allergy Home Medications: Rifaximin [Xifaxan 550 mg Tablet] 550 mg PO BID 05/10/19 Lactulose 500 mg PO DAILY 05/12/19 Allergies/Adverse Reactions: No Known Allergies Allergy (Verified 05/09/19 16:02) Review of Systems Constitutional: ABSENT: fever(s), headache(s), night sweats, weakness Ears: ABSENT: hearing changes Nose, Mouth, and Throat: ABSENT: mouth pain, sore throat Cardiovascular: ABSENT: edema, orthropnea, palpitations Respiratory: ABSENT: dyspnea, hemoptysis Gastrointestinal: ABSENT: hematemesis, hematochezia, melena Genitourinary: ABSENT: dysuria, hematuria Musculoskeletal: ABSENT: deformity, joint swelling Neurological: ABSENT: syncope, tingling, tremor(s), vertigo Endocrine: ABSENT: polydipsia, polyphagia, polyuria Hematologic/Lymphatic: ABSENT: lymphadenopathy Physical Exam Vital Signs: Temp Pulse Resp BP Pulse Ox 98.8 F 98 12 100/63 93 05/12/19 11:30 05/12/19 11:30 05/12/19 11:30 05/12/19 11:30 05/12/19 11:30 Intake & Output 05/11/19 05/12/19 05/13/19 06:59 06:59 06:59 Intake Total 600 1263 1263 Output Total 200 Balance 400 1263 1263 Weight 69.9 kg General appearance: PRESENT: no acute distress, well-developed, well-nourished Head exam: PRESENT: atraumatic, normocephalic Eye exam: PRESENT: EOMI, PERRLA. ABSENT: nystagmus, periorbital swelling, scleral icterus Mouth exam: PRESENT: moist, neck supple Throat exam: ABSENT: tonsillar exudate, tonsillogmegaly Neck exam: ABSENT: meningismus, tenderness, thyromegaly Respiratory exam: PRESENT: symmetrical, unlabored. ABSENT: tachypnea, wheezes Cardiovascular exam: PRESENT: RRR, +S1, +S2 GI/Abdominal exam: PRESENT: soft. ABSENT: rebound, rigid, tenderness Extremities exam: ABSENT: joint swelling Musculoskeletal exam: PRESENT: full ROM Neurological exam: PRESENT: oriented to situation, CN II-XII grossly intact Focused psych exam: ABSENT: restlessness Skin exam: PRESENT: normal color. ABSENT: mottled, pallor, urticaria, vesicles Results Laboratory Results: 05/11/19 09:13 05/12/19 05:45 05/12/19 05:45 Sodium 134.3 L Potassium 3.4 L Chloride 99 Carbon Dioxide 30 Anion Gap 5 BUN 3 L Creatinine 0.46 L Est GFR ( Amer) > 60 Glucose 97 Calcium 7.9 L 05/09/19 05/09/19 05/09/19 16:30 16:30 18:50 Creatine Kinase 50 49 CK-MB (CK-2) 0.83 Troponin I < 0.012 NT-Pro-B Natriuret Pep 05/09/19 05/10/19 05/10/19 18:50 00:49 00:49 Creatine Kinase 44 CK-MB (CK-2) 0.83 0.68 Troponin I < 0.012 < 0.012 NT-Pro-B Natriuret Pep 05/10/19 05/10/19 07:06 07:06 Creatine Kinase 43 CK-MB (CK-2) 0.61 Troponin I < 0.012 NT-Pro-B Natriuret Pep 328 Impressions: Abdomen Ultrasound 05/09/19 16:35 IMPRESSION: 1. Heterogeneous liver with a nodular contour, suggestive of cirrhosis. 2. Moderate ascites. Chest X-Ray 05/09/19 16:36 IMPRESSION: Mild atelectasis at the left lung base. Abdomen/Pelvis CT 05/11/19 00:00 IMPRESSION: Moderate to large volume ascites. Heterogeneous attenuation throughout the liver consistent with fatty infiltration. Paracentesis Ultrasound 05/12/19 00:00 IMPRESSION: SUCCESSFUL ULTRASOUND GUIDED PARACENTESIS. Assessment & Plan - Diagnosis (1) Alcohol abuse Is this a current diagnosis for this admission?: Yes Plan: needs to stop continue use of alcohol (2) Cirrhosis Qualifiers: Hepatic cirrhosis type: unspecified hepatic cirrhosis Ascites presence: with ascites Qualified Code(s): K74.60 - Unspecified cirrhosis of liver; R18.8 - Other ascites Is this a current diagnosis for this admission?: Yes Plan: maximize diuretics as current dose indicated low sodium< 2 grams per day if has reaccumulation , ? candidate for possible TIPS but will need a tertiary center has had paracentesis and feels better hepatitis profile is negative may be worthwhile to check MAYCO, AMA, iron studies to rule out for hemachromatosis, and alpha 1 antitrypsin levels wait on alpha fetoprotein stop alcohol use currently no evidence of alcoholic hepatitis xifaxin may be useful as well start antibiotics to reduce potential SBP with ascites, prophylactic antibiotics with a fluroquinolone may be useful as well currently compensated and PT is only slightly abnormal will follow as needed - Time Time Spent: 50 to 70 Minutes
--- NOTE | 2019-05-12 17:41 | PDOC PROGRESS REPORT ---
Subjective Progress Note for:: 05/12/19 Subjective:: This is a 54 yr old female with chronic alcohol abuse who presented with increasing abdominal distention and bilateral pedal swelling. She was admitted for significant ascites and hypokalemia likely related to her decompensated chronic liver disease. Patient just came back from radiology and had paracentesis. She denies acute complaint. She says her abdominal discomfort is much better after the paracentesis. No shortness of breath. Per RN, she had multiple episodes of diarrhea last night. Decrease lactulose from q6h to daily. Reason For Visit: CIRRHOSIS Physical Exam Vital Signs: Temp Pulse Resp BP Pulse Ox 98.8 F 98 12 100/63 93 05/12/19 11:30 05/12/19 11:30 05/12/19 11:30 05/12/19 11:30 05/12/19 11:30 Intake & Output 05/11/19 05/12/19 05/13/19 06:59 06:59 06:59 Intake Total 600 1263 1263 Output Total 200 Balance 400 1263 1263 Weight 154 lb 1.65 oz General appearance: PRESENT: no acute distress, well-developed, well-nourished Head exam: PRESENT: atraumatic, normocephalic Eye exam: PRESENT: conjunctiva pink, EOMI, PERRLA. ABSENT: scleral icterus Ear exam: PRESENT: normal external ear exam Mouth exam: PRESENT: moist, tongue midline Neck exam: ABSENT: carotid bruit, JVD, lymphadenopathy, thyromegaly Respiratory exam: PRESENT: clear to auscultation maurilio. ABSENT: rales, rhonchi, wheezes Cardiovascular exam: PRESENT: RRR. ABSENT: diastolic murmur, rubs, systolic murmur GI/Abdominal exam: PRESENT: ascites, distended - mildly distended, normal bowel sounds, soft. ABSENT: guarding, mass, organolmegaly, rebound, tenderness Rectal exam: PRESENT: deferred Neurological exam: PRESENT: alert, awake, oriented to person, oriented to place, oriented to time, oriented to situation, CN II-XII grossly intact. ABSENT: motor sensory deficit Results Laboratory Results: 05/11/19 09:13 05/12/19 05:45 05/12/19 05:45 Sodium 134.3 L Potassium 3.4 L Chloride 99 Carbon Dioxide 30 Anion Gap 5 BUN 3 L Creatinine 0.46 L Est GFR ( Amer) > 60 Glucose 97 Calcium 7.9 L 05/09/19 05/09/19 05/09/19 16:30 16:30 18:50 Creatine Kinase 50 49 CK-MB (CK-2) 0.83 Troponin I < 0.012 NT-Pro-B Natriuret Pep 05/09/19 05/10/19 05/10/19 18:50 00:49 00:49 Creatine Kinase 44 CK-MB (CK-2) 0.83 0.68 Troponin I < 0.012 < 0.012 NT-Pro-B Natriuret Pep 05/10/19 05/10/19 07:06 07:06 Creatine Kinase 43 CK-MB (CK-2) 0.61 Troponin I < 0.012 NT-Pro-B Natriuret Pep 328 Impressions: Abdomen Ultrasound 05/09/19 16:35 IMPRESSION: 1. Heterogeneous liver with a nodular contour, suggestive of cirrhosis. 2. Moderate ascites. Chest X-Ray 05/09/19 16:36 IMPRESSION: Mild atelectasis at the left lung base. Abdomen/Pelvis CT 05/11/19 00:00 IMPRESSION: Moderate to large volume ascites. Heterogeneous attenuation throughout the liver consistent with fatty infiltration. Paracentesis Ultrasound 05/12/19 00:00 IMPRESSION: SUCCESSFUL ULTRASOUND GUIDED PARACENTESIS. Assessment and Plan - Diagnosis (1) Ascites due to alcoholic cirrhosis Is this a current diagnosis for this admission?: Yes Plan: Patient just got back from radiology and had paracentesis. (2) Cirrhosis Qualifiers: Hepatic cirrhosis type: unspecified hepatic cirrhosis Ascites presence: with ascites Qualified Code(s): K74.60 - Unspecified cirrhosis of liver; R18.8 - Other ascites Is this a current diagnosis for this admission?: Yes Plan: Continue lasix and aldactone. (3) Alcohol abuse Is this a current diagnosis for this admission?: Yes Plan: Counseled on cessation. (4) Hypokalemia Is this a current diagnosis for this admission?: Yes Plan: Continue PO replacement. - Time Time Spent with patient: 15-24 minutes
[2019-05-12] MEDS: NORMAL SALINE 1000 ML 1,000 ML with POTASSIUM CHLORIDE 20 MEQ, MAGNESIUM SULFATE 8 MEQ,... IV SCH ×5 (18:16)
[2019-05-13] MEDS: PANTOPRAZOLE SODIUM 40 MG TABLET.DR PO SCH (05:13)
[2019-05-13] MEDS: LACTULOSE SYRUP 20 GM/30 ML UDCUP PO SCH (10:23)
[2019-05-13] MEDS: FUROSEMIDE 40 MG TABLET PO SCH (10:24)
[2019-05-13] MEDS: SPIRONOLACTONE 25 MG TABLET PO SCH (10:24)
[2019-05-13] MEDS: POTASSIUM CHLORIDE 20 MEQ PACKET PO SCH (11:02)
[2019-05-13] MEDS: RIFAXIMIN 550 MG TABLET PO SCH (11:02)
[2019-05-13] MEDS ORDERED: SPIRONOLACTONE 25 MG TABLET PO ONE (11:45)
[2019-05-13] MEDS ORDERED: FUROSEMIDE 20 MG TABLET PO ONE (12:00)
[2019-05-13 12:27] LABS: ANION GAP 5 (5-19); BLOOD UREA NITROGEN 5 mg/dL (7-20); CALCIUM 8.2 mg/dL (8.4-10.2); CARBON DIOXIDE 29 mmol/L (22-30); CHLORIDE 99 mmol/L (98-107); GLUCOSE 109 mg/dL (75-110)
[2019-05-13 12:47] VITALS: BP 101/61
[2019-05-13] MEDS ORDERED: POTASSIUM CHLORIDE 20 MEQ PACKET PO SCH (14:00)
[2019-05-13] MEDS ORDERED: FUROSEMIDE 40 MG TABLET PO SCH (18:00)
[2019-05-14] MEDS ORDERED: SPIRONOLACTONE 25 MG TABLET PO SCH (10:00)
--- NOTE | 2019-05-15 18:24 | PDOC DISCHARGE SUMMARY ---
General - Admit/Disc Date/PCP Admission Date/Primary Care Provider: 05/09/19 18:02 MARTINEZ CAPELLAN Discharge Date: 05/13/19 - Discharge Diagnosis (1) Ascites due to alcoholic cirrhosis Is this a current diagnosis for this admission?: Yes (2) Cirrhosis Is this a current diagnosis for this admission?: Yes (3) Alcohol abuse Is this a current diagnosis for this admission?: Yes (4) Hypokalemia Is this a current diagnosis for this admission?: Yes - Additional Information Resuscitation Status: Full Code Discharge Diet: As Tolerated Discharge Activity: Activity As Tolerated Prescriptions: Spironolactone [Aldactone] 50 mg PO DAILY #30 tablet Lactulose [Cephulac Syrup 20 gm/30 ml Udcup] 20 gm PO DAILY PRN #2 udc PRN Reason: Furosemide [Lasix 20 mg Tablet] 20 mg PO QAM #30 tablet Potassium Chloride [Potassium Chloride 20 Meq Packet] 20 meq PO BID #30 packet Rifaximin [Xifaxan 550 mg Tablet] 550 mg PO BID #60 Home Medications: Furosemide [Lasix 20 mg Tablet] 20 mg PO QAM #30 tablet 05/13/19 Lactulose [Cephulac Syrup 20 gm/30 ml Udcup] 20 gm PO DAILY PRN #2 udc 05/13/19 Potassium Chloride [Potassium Chloride 20 Meq Packet] 20 meq PO BID #30 packet 05/13/19 Rifaximin [Xifaxan 550 mg Tablet] 550 mg PO BID #60 05/13/19 Spironolactone [Aldactone] 50 mg PO DAILY #30 tablet 05/13/19 History of Present Illness History of Present Illness: Admitting hospitalist's H&P: DONTRELL SOUZA is a 54 year old female with history of cirrhosis of the liver and alcohol abuse since she was a kid chronic smoker came to the emergency room with complaints of abdominal swelling and bilateral leg swelling for the last couple of weeks. Patient was recently in [facility] for pneumonia and discharged 3 weeks ago. Continues to drink alcohol. She had a heavy alcohol use last night before came to the emergency room today. Alcohol level in the emergency room is 190. He wants to be full code. He denies any nausea vomiting diarrhea denies any headaches dizzy spells. Denies any falls. She is noncompliant with her medications lactulose. Hospital Course Hospital Course: This is a 54 yr old female with chronic alcohol abuse who presented with increasing abdominal distention and bilateral pedal swelling. She was admitted for significant ascites and hypokalemia likely related to her decompensated chronic liver disease. Patient's hypokalemia was corrected. She also underwent paracentesis and had 4 L drained. She had significant resolution of her abdominal discomfort. She returned to her baseline. She was started on Lasix and spironolactone. Dose was adjusted and decreased as her blood pressures were running in the low normal and. She will closely follow-up with her PCP for titration of her diuretic regimen. She will also have another BMP reassessed by PCP. She was heavily counseled about alcohol cessation. Physical Exam Vital Signs: Temp Pulse Resp BP Pulse Ox 97.6 F 101 H 20 101/61 91 L 05/13/19 14:09 05/13/19 14:09 05/13/19 14:09 05/13/19 14:09 05/13/19 14:09 Intake & Output 05/14/19 05/15/19 05/16/19 06:59 06:59 06:59 Intake Total 1323 Output Total 900 Balance 423 General appearance: PRESENT: no acute distress, well-developed, well-nourished Head exam: PRESENT: atraumatic, normocephalic Eye exam: PRESENT: conjunctiva pink, EOMI, PERRLA. ABSENT: scleral icterus Ear exam: PRESENT: normal external ear exam Mouth exam: PRESENT: moist, tongue midline Neck exam: ABSENT: carotid bruit, JVD, lymphadenopathy, thyromegaly Respiratory exam: PRESENT: clear to auscultation maurilio. ABSENT: rales, rhonchi, wheezes Cardiovascular exam: PRESENT: RRR. ABSENT: diastolic murmur, rubs, systolic murmur Pulses: PRESENT: normal dorsalis pedis pul GI/Abdominal exam: PRESENT: ascites, normal bowel sounds, soft. ABSENT: guarding, mass, organolmegaly, rebound, tenderness Rectal exam: PRESENT: deferred Extremities exam: PRESENT: full ROM. ABSENT: calf tenderness, clubbing, pedal edema Neurological exam: PRESENT: alert, awake, oriented to person, oriented to place, oriented to time, oriented to situation, CN II-XII grossly intact. ABSENT: motor sensory deficit Results Laboratory Results: 05/11/19 09:13 05/13/19 12:02 05/09/19 05/09/19 05/09/19 16:30 16:30 18:50 Creatine Kinase 50 49 CK-MB (CK-2) 0.83 Troponin I < 0.012 NT-Pro-B Natriuret Pep 05/09/19 05/10/19 05/10/19 18:50 00:49 00:49 Creatine Kinase 44 CK-MB (CK-2) 0.83 0.68 Troponin I < 0.012 < 0.012 NT-Pro-B Natriuret Pep 05/10/19 05/10/19 07:06 07:06 Creatine Kinase 43 CK-MB (CK-2) 0.61 Troponin I < 0.012 NT-Pro-B Natriuret Pep 328 Impressions: Abdomen Ultrasound 05/09/19 16:35 IMPRESSION: 1. Heterogeneous liver with a nodular contour, suggestive of cirrhosis. 2. Moderate ascites. Chest X-Ray 05/09/19 16:36 IMPRESSION: Mild atelectasis at the left lung base. Abdomen/Pelvis CT 05/11/19 00:00 IMPRESSION: Moderate to large volume ascites. Heterogeneous attenuation throughout the liver consistent with fatty infiltration. Paracentesis Ultrasound 05/12/19 00:00 IMPRESSION: SUCCESSFUL ULTRASOUND GUIDED PARACENTESIS. Qualifiers - * PATIENT BEING DISCHARGED WITH ANY OF THE FOLLOWING DIAGNOSIS: No Acute Heart Failure - Is this a Heart Failure Patient?: No LVEF < 40%?: No- if no continue to question #3 3. Anticoagulant therapy for permanect/persistent/paraoxysmal Afib or Aflutter: N/A
== END 2019-05-13 14:41 | disposition home or self-care (01) | DRG 434 ==
LOC: ER 15:58 → EH 18:02 → OBSVTOIN 18:02 → 5 19:37
PROVIDERS: ADMIT Internal Medicine; ATTEND Internal Medicine
PROC: 0W9G3ZZ Drainage of Peritoneal Cavity, Percutaneous Approach (ICD-10-PCS; principal; 2019-05-12)
DX: K70.31 Alcoholic cirrhosis of liver with ascites (principal); E87.6 Hypokalemia; F17.210 Nicotine dependence, cigarettes, uncomplicated; Z79.899 Other long term (current) drug therapy
CPT/HCPCS: 36415; 49083; 71046; 74176; 76700; 80048; 80053; 80061; 80074; 80307; 81001; 82105; 82140; 82550; 82553; 82962; 83036; 83690; 83735; 83880; 84132; 84443; 84484; 85025; 85610; 85730; 93005; 93010; 96374; 99285; A9270-GY; J1885; J2060; J2405; J3411; J3475; J3480; J3490; J7030